=== PATIENT | female | born 1990 | race Caucasian/White ===

== ENCOUNTER 2022-08-22 08:45 | Outpatient (RCR) | payer OTHER | END 2022-08-25 | disposition home or self-care (01) | LOC: WSPT | DX: M70.812 Other soft tissue disorders related to use, overuse and pressure, left shoulder (principal); Y99.0 Civilian activity done for income or pay ==

== ENCOUNTER 2022-09-17 08:17 | Outpatient (RCR) | payer OTHER | END 2022-09-17 15:00 | disposition home or self-care (01) | LOC: WSPT 08:17 | DX: M70.812 Other soft tissue disorders related to use, overuse and pressure, left shoulder (principal) ==